=== PATIENT | female | born 1995 | race Caucasian/White ===

== ENCOUNTER 2020-02-17 22:54 | Inpatient (IN) ==
[2020-02-17] MEDS ORDERED: OXYTOCIN 30 UNITS/500 ML BAG IV PRN (23:43)
[2020-02-17] MEDS ORDERED: PENICILLIN G POTASSIUM 3 MU in DEXTROSE 5% 100 ML IV PRN (23:43)
[2020-02-17] MEDS ORDERED: PENICILLIN G POTASSIUM 6 MU in DEXTROSE 5% 250 ML IV STA (23:43)
[2020-02-17] MEDS: LACTATED RINGER'S 1,000 ML IV PRN (23:55)
--- NOTE | 2020-02-17 23:55 | History & Physical Report ---
Date of Service February 17, 2020 Assessment & Plan (1) GBS (group B Streptococcus carrier), +RV culture, currently : 24yo at 38.2 weeks GA. Labor 1. Fetus: Cat 1 2. Labor: Early. Will admit. Epidural PRN. Will augment as needed 3. GBS Positive: PCN 4. Vital WNL (2) Supervision of normal intrauterine in multigravida: (3) Normal labor: History of Present Illness Primary Care Provider: NO PCP 24yo at 38.2 weeks GA. Presents with contractions increasing ing frequency and intensity. Denies LOF, VB. Good FM. complicated by GBS positive. OB Labs: Blood Type A Positive 07/28/19 Antibody Screen NEGATIVE 07/28/19 Hemoglobin 11.7 g/dL (12.0-16.0) L 07/28/19 Hematocrit 36.0 % (37-47) L 07/28/19 Mean Corpuscular Volume 94.5 fL (80-100) 07/28/19 Platelet Count 295 K/uL (130-400) 07/28/19 Rubella IgG Antibody Immune (Immune) 07/28/19 Rapid Plasma Reagin Nonreactive (Nonreactive) 07/28/19 Hepatitis B Surface Antigen Neg (Neg) 07/28/19 HIV (1&2) Ab and P24 Ag, 4th Gener Neg (Neg) 07/28/19 OB Optional Labs: Chlamydia trachomatis RNA NOT DETECTED (NOT DETECTED) 07/28/19 Neisseria gonorrhoeae RNA NOT DETECTED (NOT DETECTED) 07/28/19 Thyroid Stimulating Hormone (TSH) 1.590 uIu/ml (0.300-4.500) 07/28/19 Allergies Allergy/AdvReac Type Severity Reaction Status Date / Time acetaminophen Allergy eye Verified 02/15/20 10:51 swelling NSAIDS (Non-Steroidal Allergy throat and Verified 02/15/20 10:51 Anti-Inflamma eye swelling Home Medications Medication Instructions Recorded Confirmed Type ferrous sulfate 325 mg PO DAILY 07/18/19 02/17/20 History prenat.vits,margo,[id number]-[id number] 1 tab PO DAILY 07/18/19 02/17/20 History Patient History Medical History (Updated 02/17/20 @ 23:52 by Long Browning MD) Abnormal thyroid function test Ovarian cyst Varicella vaccination Surgical History S/P wisdom tooth extraction Family History Mother Thyroid disease Social History (Updated 07/18/19 @ 10:58 by Radha Haskins) Smoking Status: Never smoker Hx Alcohol Use: No Hx Substance Use: No Preferred Language: Venezuelan Communication Ability: Effective Beliefs That Will Affect Care: None marital status: marital status details: Anup Anderson (25) [phone] Current Living Situation: Spouse and Family Current Living Situation Comment: lives with spouse, son, dog current occupational status: employed current occupation: self-employed Wedding/crusher operator Feels Safe at Home: Yes Safety Concerns: Feels Safe At This Time Physical Exam Constitutional: WD/WN, vitals as above Respiratory: normal respiratory effort; no respiratory distress, no labored breathing and no retractions Cardiovascular: Rate/Rhythm: regular rate; not bradycardic and not tachycardic Gastrointestinal (Abdomen): Percussion/Palpation: abdomen soft; abdomen nontender, no guarding and abdomen not rigid Genitourinary: OB Exam Abdomen: + vertex Manual OB Exam: + cervical dilation 4 cm, + cervical effacement 90% and + station -1 OB Exam Monitor Tracing: + external FHT monitor used, + external uterine monitor used, + category I and + normal FHT variability; no early decelerations present, no late decelerations present and no variable decelerations Results & Data ([facility]) Vital Signs (Past 12 Hours) Vital Signs Temp Pulse Resp BP 02/17/20 23:14 36.8 C 18 02/17/20 23:09 36.8 C 85 18 128/65 Coding Level of Care Code None Diagnoses GBS (group B Streptococcus carrier), +RV culture, currently O99.820 Supervision of normal intrauterine in multigravida Z34.80 Normal labor O80; Z37.9
[2020-02-18 00:13] LABS: Hematocrit (blood only) 33.3 % (37-47); Hemoglobin 10.9 g/dL (12.0-16.0); Mean Corpuscular Hemoglobin 30.4 pg (25-34); Mean Corpuscular Hgb Conc 32.7 g/dL (32-36); Mean Corpuscular Volume 92.8 fL (80-100); Mean Platelet Volume 10.1 fL (7.4-10.4); Platelet Count 267 K/uL (130-400); RDW Standard Deviation 44.1 fL (36.4-46.3); Red Blood Count 3.59 M/uL (4.2-5.4); White Blood Count 16.29 K/uL (4.8-10.8)
[2020-02-18] MEDS ORDERED: BUPIVACAINE 0.25% 30 ML VIAL ONE (02:10)
[2020-02-18] MEDS ORDERED: ePHEDrine sulfate 50 MG/ML AMP ONE (02:10)
[2020-02-18] MEDS ORDERED: SODIUM CHLORIDE 0.9% INJ 10 ML VIAL ONE (02:10)
[2020-02-18] MEDS ORDERED: fentaNYL citrate 100 MCG/2 ML VIAL ONE (02:10)
[2020-02-18] MEDS ORDERED: fentaNYL 2MCG/ML ROPIVACAINE 1.25MG/ML 100 ML BAG EPI ONE (02:11)
[2020-02-18] MEDS ORDERED: NALOXONE HCL 0.4 MG/1 ML VIAL/CARP IV PRN (02:17)
[2020-02-18] MEDS ORDERED: ePHEDrine sulfate 50 MG/ML AMP IV PRN (02:17)
[2020-02-18] MEDS ORDERED: NALOXONE HCL 1 MG in SODIUM CHLORIDE 0.9% 1000ML 1,000 ML IV PRN (02:17)
[2020-02-18] MEDS ORDERED: diphenhydrAMINE 50 MG/ML VIAL IV PRN (02:17)
[2020-02-18] MEDS ORDERED: ONDANSETRON INJ 2 MG/ML 2 ML VIAL IV PRN (02:17)
[2020-02-18] MEDS ORDERED: fentaNYL 2MCG/ML ROPIVACAINE 1.25MG/ML 100 ML BAG EPI PRN (02:17)
--- NOTE | 2020-02-18 02:21 | Anesthesiology Consultation ---
Date of Service February 18, 2020 Assessment & Plan (1) Encounter for pre-operative examination: Chart Review Chart Review: Patient NOT seen in Pre Admission Testing, Acceptable Risk for Labor Epidural and Patient seen in Pre Admission Testing Consults Requested cardiac History Height/Weight Height: 5 ft 3 in Weight: 76.657 kg Allergies Allergy/AdvReac Type Severity Reaction Status Date / Time acetaminophen Allergy eye Verified 02/15/20 10:51 swelling NSAIDS (Non-Steroidal Allergy throat and Verified 02/15/20 10:51 Anti-Inflamma eye swelling Medications Home Medications Medication Instructions Recorded Confirmed Last Taken ferrous sulfate 325 mg PO DAILY 07/18/19 02/17/20 02/15/20 prenat.vits,margo,[id number] 1 tab PO DAILY 07/18/19 02/17/20 02/17/20 Active Medications Generic Name Dose Route Start Last Admin Trade Name Freq PRN Reason Stop Dose Admin Lactated Ringer's 1,000 mls @ 125 mls/hr 02/17/20 23:43 02/18/20 02:10 Lr IV 02/19/20 23:42 999 mls/hr .Q8H PRN Infusion L&D Protocol Protocol Past Medical History Medical History Abnormal thyroid function test Ovarian cyst Varicella vaccination Exercise / Class Metabolic Activity II 4-5 Yardwork/Stairs/Walk up hill Past Family History Family History Mother Thyroid disease Past Surgical History Surgical History S/P wisdom tooth extraction Past Anesthesia History No Hx of Anesthesia Complications and No Family Hx of Anesthesia Complications History of PONV No Hx of PONV and No Hx of Motion Sickness Social History Smoking Status: Never smoker Do You Dip or Chew Tobacco: No Hx Alcohol Use: No Hx Substance Use: No substance use type: does not use Physical Exam Vital Signs Last Vital Signs Temp 36.8 C 02/17/20 23:14 Pulse 85 02/17/20 23:09 Resp 18 02/17/20 23:14 BP 128/65 02/17/20 23:09 Testing Laboratory Results 02/18/20 00:05
[2020-02-18] MEDS: LACTATED RINGER'S 1,000 ML IV PRN (06:10)
[2020-02-18] MEDS ORDERED: HYDROCORTISONE ACETATE 25 MG SUPP PR PRN (08:15)
[2020-02-18] MEDS ORDERED: SUPERCREAM 0.870% 15 GM JAR EXT PRN (08:15)
[2020-02-18] MEDS ORDERED: OXYTOCIN 30 UNITS/500 ML BAG IV PRN (08:15)
[2020-02-18] MEDS ORDERED: bisacodyL 10 MG SUPP PR PRN (08:15)
[2020-02-18] MEDS ORDERED: BENZOCAINE 20% AER SPR 82.5 GM CAN EXT PRN (08:15)
[2020-02-18] MEDS ORDERED: traMADol HCL 50 MG TABLET PO PRN (08:15)
[2020-02-18] MEDS ORDERED: DIPHTHERIA/TETANUS/PERTUSSIS 0.5 ML SYR/VIAL IM ONE (08:15)
--- NOTE | 2020-02-18 09:25 | Anesthesia Procedure Note ---
Date of Service February 18, 2020 Anesthesia Post Epidural Note Vital Signs Vital Signs: Temp Pulse Resp BP Pulse Ox 37.2 C 83 20 101/58 L 100 02/18/20 05:12 02/18/20 09:21 02/18/20 08:35 02/18/20 09:21 02/18/20 07:15 Pain Intensity Bilateral Abdomen: Pain Intensity: 8 Notes Mental Status: alert / awake / arousable and participated in evaluation Nausea / Vomiting: adequately controlled Pain: adequately controlled Airway Patency, RR, SpO2: stable & adequate BP & HR: stable & adequate Hydration State: stable & adequate Neuraxial Anesthesia: was administered and sensory block is resolving Anesthetic Complications: no major complications apparent Epidural: Removed without complications and With tip intact
--- NOTE | 2020-02-18 10:57 | Delivery Summary ---
DATE OF OPERATION: 02/18/2020 PROCEDURE: Normal spontaneous vaginal delivery with first-degree perineal laceration repair. ESTIMATED BLOOD LOSS: 200 mL. DRAINS: Straight cath for 500 mL at completion of the case. COMPLICATIONS: None. FINDINGS: A viable with weight pending and Apgars of 8 and 9 at 1 and 5 minutes respectively. INDICATIONS: Suki is a 24-year-old who presents at 38 weeks 3 days gestational age, presented in labor. The patient was initially found to be 4 cm dilated, 90% effaced, -2 station. The patient progressed without augmentation to complete, complete, +2 station, at which time she felt the urge to push. The patient underwent spontaneous rupture of membranes for clear fluid during her labor process and received an epidural for anesthesia. The patient pushed for approximately 2 contractions to achieve delivery. DESCRIPTION OF PROCEDURE: The patient progressed to 10 cm dilated, 100% effaced, +2 station, pushed over intact perineum with epidural anesthesia and delivered a viable with weight and Apgars as noted above. Head of delivered in STEVE position, rest to left transverse. No nuchal cord was noted. Body and shoulders quickly followed. was noted to be vigorous upon delivery and a 1-minute delayed cord clamping was initiated. Cord was then double clamped and cut. remained on maternal abdomen. Cord blood was obtained. Attention was then turned to delivery of the placenta, which was delivered intact, 3-vessel cord, gentle cord traction. On inspection of perineum, vagina, and cervix, there was noted to be a very small first-degree perineal laceration, which was repaired with 3-0 Vicryl in an interrupted stitch. Needle, sponge, and instrument counts were correct at the completion of the case with mother and stable in the immediate post-delivery period. I attest to the content of the Intraoperative Record and any orders documented therein. Any exception s are noted below.
[2020-02-18] MEDS ORDERED: oxyCODONE HCL IR 5 MG TAB (IMMEDIATE RELEASE) PO PRN ×3 (11:12→19:10)
[2020-02-18] MEDS ORDERED: Nursing to Pharmacy Communication SCH (19:15)
[2020-02-18] MEDS: oxyCODONE HCL IR 5 MG TAB (IMMEDIATE RELEASE) PO PRN ×2 (19:26→23:35)
[2020-02-18] MEDS: DOCUSATE SODIUM 100 MG CAP PO SCH (20:12)
[2020-02-19] MEDS: oxyCODONE HCL IR 5 MG TAB (IMMEDIATE RELEASE) PO PRN ×3 (03:09→11:56)
[2020-02-19 07:07] LABS: Hematocrit (blood only) 34.5 % (37-47); Hemoglobin 11.2 g/dL (12.0-16.0)
[2020-02-19] MEDS: DOCUSATE SODIUM 100 MG CAP PO SCH (07:23)
[2020-02-19] MEDS ORDERED: FERROUS SULFATE 325 MG TAB PO SCH (08:00)
[2020-02-19] MEDS ORDERED: PRENATAL VITAMIN 1 TAB PO SCH (08:00)
--- NOTE | 2020-02-19 08:02 | Obstetrical Progress Note ---
Date of Service February 19, 2020 Assessment & Plan (1) Encounter for care and examination after delivery: satisfactory progress continue current care plan Subjective Ambulation: ambulating normally Voiding: no voiding problems Passing Gas:: Yes Diet Tolerance:: regular diet Lochia:: Small Feeding Type:: breast feeding oxycodone helping with cramps. cannot take ibuprofen or tylenol. Physical Exam Constitutional WD/WN, vitals as above Psychiatric A+Ox3, euthymic affect Genitourinary OB Exam Abdomen: + fundal height Fundus: + firm and + relation to umbilicus (1 below U) Results & Data ([facility]) Vital Signs (Past 12 Hours) Vital Signs Temp Pulse Resp BP 02/19/20 07:47 98.1 F 80 20 111/70 02/19/20 03:15 98.2 F 81 18 113/75 02/18/20 23:40 98.1 F 80 16 117/71
[2020-02-19] MEDS ORDERED: bisacodyL 5 MG TABEC PO SCH (20:00)
== END 2020-02-19 12:30 | disposition home or self-care (01) | DRG 807 ==
LOC: OPB 22:54 → 4S1 22:55 → 4S2 02-18 14:36

== ENCOUNTER 2022-11-23 10:49 | Inpatient (IN) ==
[2022-11-23] MEDS ORDERED: LIDOCAINE 1% LOCAL 20 ML VIAL INFIL PRN (14:49)
[2022-11-23] MEDS ORDERED: OXYTOCIN 30 UNITS/500 ML BAG IV PRN ×3 (14:49→18:24)
--- NOTE | 2022-11-23 14:53 | History & Physical Report ---
Date of Service November 23, 2022 Assessment & Plan (1) Encounter for supervision of normal in multigravida, antepartum: Plan: 27 yo at 39 4/7 wga presents in labor VSS Fetus cat 1 Labor - augment prn GBS neg epidural prn History of Present Illness Chief Complaint: Contractions Primary Care Provider: Jessenia Hinkle MD 27 yo at 39 4/7 wga presented w/ ctx increasing in frequency and intensity. +FM; denies LOF, VB. 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 current regular cycles denies hx stis Allergies Allergy/AdvReac Type Severity Reaction Status Date / Time acetaminophen Allergy eye Verified 11/23/22 11:10 swelling NSAIDS (Non-Steroidal Allergy throat and Verified 11/23/22 11:10 Anti-Inflamma eye swelling Home Medications Medication Instructions Recorded Confirmed Type prenat.vits,margo,[id number]-[id number] 1 tab PO DAILY 07/18/19 11/23/22 History ferrous sulfate [Iron (ferrous 1 tab PO DAILY 11/01/21 11/23/22 History sulfate)] pyridoxine (vitamin B6) [Vitamin PO 04/21/22 11/21/22 History B-6] Patient History Medical History (Updated 11/23/22 @ 11:09 by Lynette Darby RN) Abnormal thyroid function test Anemia GBS (group B Streptococcus carrier), +RV culture, currently Normal labor Ovarian cyst Supervision of normal intrauterine in multigravida Varicella vaccination Surgical History S/P wisdom tooth extraction Family History Mother Thyroid disease Grandfather (Maternal) Myocardial infarction Denies family history of Ovarian cancer Prostate cancer Breast cancer Colorectal cancer Social History (Updated 04/21/22 @ 17:06 by Katia Doyle) Smoking Status: Never smoker Do You Dip or Chew Tobacco: No; Hx Alcohol Use: No Hx Substance Use: No Preferred Language: Belarusian Communication Ability: Effective Aircraft Tool Maker Required: No Beliefs That Will Affect Care: None marital status: marital status details: Anup Anderson (27) [phone] Current Living Situation: Spouse Current Living Situation Comment: Patient lives with her and two sons. current occupational status: employed current occupation: self-employed Wedding/personnel worker Feels Safe at Home: Yes Safety Concerns: Feels Safe At This Time Assistive Devices: None Physical Exam Genitourinary: OB Exam Abdomen: + estimated weight (7-8) Manual OB Exam: + cervical dilation 5 cm, + cervical effacement 80% and + station -2 OB Exam Monitor Tracing: + external FHT monitor used, + external uterine monitor used and + category I Results & Data Vital Signs (Past 12 Hours) Vital Signs Temp Pulse Resp BP 11/23/22 11:15 98.1 F 100 H 20 108/66 11/23/22 11:03 18 11/23/22 11:03 98.1 F 18 11/23/22 11:04 100 H 108/ Laboratory Results OB Labs: Blood Type A Positive 04/22/22 Antibody Screen NEGATIVE 04/22/22 Hemoglobin 10.8 g/dl (12.0-16.0) L 09/03/22 Hematocrit 32.5 % (37.0-47.0) L 09/03/22 Mean Corpuscular Volume 92.0 fL (80.0-100.0) 04/22/22 Platelet Count 292 K/uL (130-400) 04/22/22 Rubella IgG Antibody Immune (Immune) 04/22/22 Rapid Plasma Reagin Nonreactive (Nonreactive) 04/22/22 Hepatitis B Surface Antigen Neg (Neg) 07/28/19 Hepatitis B Surface Antigen. NON-REACTIVE (NON-REACTIVE) 04/22/22 Hepatitis C Antibody (EIA) NON-REACTIVE (NON-REACTIVE) 04/22/22 HIV (1&2) Ab and P24 Ag, 4th Gener Neg (Neg) 07/28/19 HIV (1&2) Ag and Ab Confirmation NON-REACTIVE (NON-REACTIVE) 04/22/22 Glucose 1 Hour 50 gm Load 134 mg/dl (70-130) H 09/03/22 OB Optional Labs: Chlamydia trachomatis RNA Not Detected (NotDetected) 04/22/22 Neisseria gonorrhoeae RNA Not Detected (NotDetected) 04/22/22 Thyroid Stimulating Hormone (TSH) 1.590 uIu/ml (0.300-4.500) 07/28/19 Labs Reviewed: Positive CF carrier/spouse neg, 2018 SMA Negative 07/28/19 Declines cfdna--mln declines afp--ak gbs neg--[facility] Diagnostic Findings ant plac Coding Level of Care Code None Diagnoses Encounter for supervision of normal in multigravida, antepartum Z34.80
[2022-11-23] MEDS: LACTATED RINGER'S 1,000 ML IV PRN ×2 (15:00→16:00)
[2022-11-23] MEDS ORDERED: SODIUM CHLORIDE 0.9% PF INJ 10 ML VIAL ONE (15:11)
[2022-11-23] MEDS ORDERED: LIDOCAINE 2%/EPINEPHRINE 1:200,000 20 ML PF ONE (15:11)
[2022-11-23] MEDS ORDERED: ePHEDrine sulfate 50 MG/ML AMP ONE (15:11)
[2022-11-23] MEDS ORDERED: fentaNYL citrate PF 100 MCG/2 ML VIAL ONE (15:11)
[2022-11-23] MEDS ORDERED: BUPIVACAINE 0.25% PF 30 ML VIAL ONE (15:11)
[2022-11-23] MEDS ORDERED: fentaNYL 2MCG/ML ROPIVACAINE 1.25MG/ML 100 ML BAG EPI ONE (15:12)
--- NOTE | 2022-11-23 15:19 | Anesthesiology Consultation ---
Date of Service November 23, 2022 Assessment & Plan Chart Review Chart Review: Acceptable Risk for Labor Epidural Consults Requested none History Height/Weight Height: 5 ft 3 in Weight: 78.018 kg Allergies Allergy/AdvReac Type Severity Reaction Status Date / Time acetaminophen Allergy eye Verified 11/23/22 11:10 swelling NSAIDS (Non-Steroidal Allergy throat and Verified 11/23/22 11:10 Anti-Inflamma eye swelling Medications Home Medications Medication Instructions Recorded Confirmed Last Taken prenat.vits,margo,[id number] 1 tab PO DAILY 07/18/19 11/23/22 11/22/22 08:00 ferrous sulfate [Iron (ferrous 1 tab PO DAILY 11/01/21 11/23/22 11/23/22 08:00 sulfate)] pyridoxine (vitamin B6) [Vitamin PO 04/21/22 11/21/22 Unknown B-6] Active Medications Generic Name Dose Route Start Last Admin Trade Name Freq PRN Reason Stop Dose Admin Lactated Ringer's 1,000 mls @ 125 mls/hr 11/23/22 14:49 11/23/22 15:00 Lr IV 11/25/22 14:48 999 mls/hr .Q8H PRN Administration L&D Protocol Protocol Past Medical History Medical History (Updated 11/23/22 @ 11:09 by Lynette Darby RN) Abnormal thyroid function test Anemia GBS (group B Streptococcus carrier), +RV culture, currently Normal labor Ovarian cyst Supervision of normal intrauterine in multigravida Varicella vaccination Past Family History Family History Mother Thyroid disease Grandfather (Maternal) Myocardial infarction Denies family history of Ovarian cancer Prostate cancer Breast cancer Colorectal cancer Past Surgical History Surgical History S/P wisdom tooth extraction Social History Smoking Status: Never smoker Do You Dip or Chew Tobacco: No Hx Alcohol Use: No Hx Substance Use: No substance use type: does not use Physical Exam Vital Signs Last Vital Signs Temp 36.7 C 11/23/22 11:15 Pulse 105 H 11/23/22 15:13 Resp 20 11/23/22 11:15 BP 108/66 11/23/22 11:15 Pulse Ox 97 11/23/22 15:13
[2022-11-23] MEDS ORDERED: fentaNYL citrate PF 100 MCG/2 ML VIAL EPI STA (15:20)
[2022-11-23] MEDS ORDERED: fentaNYL citrate PF 100 MCG/2 ML VIAL EPI PRN (15:20)
[2022-11-23] MEDS ORDERED: ROPIVACAINE 0.5% PF 5 MG/ML 20 ML VIAL EPI PRN (15:20)
[2022-11-23] MEDS ORDERED: BUPIVACAINE 0.25% PF 30 ML VIAL EPI STA (15:20)
[2022-11-23] MEDS ORDERED: LIDOCAINE 2%/EPINEPHRINE 1:200,000 20 ML PF EPI STA (15:20)
[2022-11-23] MEDS ORDERED: SODIUM CHLORIDE 0.9% PF INJ 10 ML VIAL EPI PRN (15:20)
[2022-11-23] MEDS ORDERED: ePHEDrine sulfate 50 MG/ML AMP IV PRN (15:20)
[2022-11-23] MEDS ORDERED: LIDOCAINE 2% MPF LOCAL 5 ML VIAL EPI PRN (15:20)
[2022-11-23] MEDS ORDERED: diphenhydrAMINE 50 MG/ML VIAL IV PRN (15:20)
[2022-11-23] MEDS ORDERED: SODIUM CHLORIDE 0.9% PF INJ 10 ML VIAL EPI STA (15:20)
[2022-11-23] MEDS ORDERED: NALBUPHINE HCL INJ 10 MG/ML AMP IV PRN (15:20)
[2022-11-23] MEDS ORDERED: NALOXONE HCL 0.4 MG/1 ML VIAL/CARP IV PRN (15:20)
[2022-11-23] MEDS ORDERED: fentaNYL 2MCG/ML ROPIVACAINE 1.25MG/ML 100 ML BAG EPI PRN (15:20)
[2022-11-23] MEDS ORDERED: NALOXONE HCL 1 MG in SODIUM CHLORIDE 0.9% 1,000 ML IV PRN (15:20)
[2022-11-23] MEDS ORDERED: BUPIVACAINE 0.25% PF 30 ML VIAL EPI PRN (15:20)
[2022-11-23 15:52] LABS: Hematocrit (blood only) 34.4 % (37.0-47.0); Hemoglobin 11.4 g/dl (12.0-16.0); Mean Corpuscular Hemoglobin 29.9 pg (25.0-34.0); Mean Corpuscular Hgb Conc 33.1 g/dL (32.0-36.0); Mean Corpuscular Volume 90.3 fL (80.0-100.0); Mean Platelet Volume 11.1 fL (9.4-12.4); Platelet Count 240 K/uL (130-400); RDW Coefficient of Variation 13.3 % (11.5-14.5); RDW Standard Deviation 43.7 fL (36.4-46.3); Red Blood Count 3.81 M/uL (4.20-5.40); White Blood Count 12.35 K/ul (4.8-10.8)
--- NOTE | 2022-11-23 17:27 | Labor Progress Brief Note ---
Date of Service November 23, 2022 Subjective Comfortable w/ epidural Assessment & Plan (1) Encounter for supervision of normal in multigravida, antepartum: Plan: 27 yo at 39 4/7 wga presents in labor VSS Fetus cat 1 Labor - s/p arom with light mec. Station progressed, augment prn GBS neg epidural in place Admission and Anticipated Discharge Date Admission Date: November 23, 2022 Physical Exam Genitourinary: Manual OB Exam: + cervical dilation 5 cm, + cervical effacement 80%, + station -1 and + amniotic fluid (arom light mec) OB Exam Monitor Tracing: + external FHT monitor used, + external uterine monitor used and + category I (140/mod/+accel/-decel) Results & Data Vital Signs (Past 12 Hours) Vital Signs Temp Pulse Resp BP Pulse Ox 11/23/22 11:15 98.1 F 100 H 20 108/66 11/23/22 17:20 95 11/23/22 17:20 103 H 11/23/22 17:15 97 11/23/22 17:15 119 H 11/23/22 17:15 110 H 11/23/22 17:15 109/54 L 11/23/22 17:10 95 11/23/22 17:10 110 H 11/23/22 17:05 96 11/23/22 17:05 114 H 11/23/22 17:00 95 11/23/22 17:00 103 H 11/23/22 17:00 93 H 11/23/22 17:00 106/58 L 11/23/22 16:57 94 11/23/22 16:57 98 H 11/23/22 16:55 97 11/23/22 16:55 109 H 11/23/22 16:51 94 11/23/22 16:51 113 H 11/23/22 16:50 97 11/23/22 16:50 106 H 11/23/22 16:45 96 11/23/22 16:45 101 H 11/23/22 16:44 102 H 11/23/22 16:44 106/51 L 11/23/22 16:40 96 11/23/22 16:40 100 H 11/23/22 16:35 96 11/23/22 16:35 95 H 11/23/22 16:30 96 11/23/22 16:30 104 H 11/23/22 16:30 92/54 L 11/23/22 16:25 97 11/23/22 16:25 99 H 11/23/22 16:20 97 11/23/22 16:20 104 H 11/23/22 16:15 98 11/23/22 16:15 96 H 11/23/22 16:16 96 H 11/23/22 16:16 101/53 L 11/23/22 16:10 98 11/23/22 16:10 96 H 11/23/22 16:05 98 11/23/22 16:05 104 H 11/23/22 16:00 98 11/23/22 16:00 98 H 11/23/22 16:00 106/49 L 11/23/22 15:55 96 11/23/22 15:55 98 H 11/23/22 15:50 97 11/23/22 15:50 92 H 11/23/22 15:45 96 11/23/22 15:45 100 H 11/23/22 15:43 93 H 11/23/22 15:43 107/56 L 11/23/22 15:40 96 11/23/22 15:40 95 H 11/23/22 15:37 94 11/23/22 15:37 95 H 11/23/22 15:37 105/72 11/23/22 15:35 98 11/23/22 15:35 99 H 11/23/22 15:32 98 H 11/23/22 15:32 119/64 11/23/22 15:25 20 11/23/22 15:25 98.4 F 20 11/23/22 15:29 97 11/23/22 15:29 112 H 11/23/22 15:24 98 11/23/22 15:24 100 H 11/23/22 15:25 101 H 11/23/22 15:25 120/80 11/23/22 15:19 93 11/23/22 15:19 102 H 11/23/22 15:18 97 11/23/22 15:18 105 H 11/23/22 15:13 97 11/23/22 15:13 105 H 11/23/22 11:03 18 11/23/22 11:03 98.1 F 18 10/15/23 11:04 100 H 108/66 Coding Level of Care Code None Diagnoses Encounter for supervision of normal in multigravida, antepartum Z34.80
--- NOTE | 2022-11-23 18:23 | Delivery Summary ---
Vaginal Delivery Summary Date of Service November 23, 2022 Vaginal Delivery Summary [facility] PREOPERATIVE DIAGNOSIS: 1. Single intrauterine at 39 4/7 wga 2. Labor POSTOPERATIVE DIAGNOSIS: 1. Single intrauterine at 39 4/7 wga 2. Labor 3. Delivered PROCEDURE: 1. Normal spontaneous vaginal delivery. SURGEON: Yi Naidu MD ANESTHESIA: Epidural. ESTIMATED BLOOD LOSS: 300 mL FLUIDS: Continuous LR. URINE OUTPUT: None. COMPLICATIONS: None. CONDITION: Stable. INDICATIONS: 27 yo at 39 4/7 wga presented for evaluation due to contractions increasing in frequency and intensity. On arrival was 4/50/-2 and progressed to 5/80/-2 and was admitted. She received an epidural for pain control and underwent AROM. She then rapidly progressed to complete and desired to push FINDINGS: A viable female , weight pending with Apgars of 8 and 9 at 1 and 5 minutes respectively. SPECIMEN: Cord blood OPERATIVE REPORT: The patient progressed to 10 cm, 100% effaced and +2 station, pushed over intact perineum with anesthesia to deliver a viable female , weight and Apgars as above. Head of delivered in OA position. No nuchal cord was present. Body and shoulders were delivered without difficulty. was delivered to maternal abdomen and nursing staff. Delayed cord clamping was performed for 60 seconds. Cord was clamped and cut. Cord blood was obtained. Placenta delivered spontaneously intact with 3-vessel cord. IV oxytocin and f undal massage were given for excellent hemostasis. Vagina, cervix, perineum, and placenta were inspected. No lacerations were noted. Sponge and needle counts correct x2. No sponges were left behind. Mother and stable in immediate period. [facility] Vaginal Delivery Charge Vaginal Delivery Codes: 00174 global code for the antepartum, delivery, and post- Delivery Type Details: [facility]
[2022-11-23] MEDS ORDERED: bisacodyL 10 MG SUPP PR PRN (18:24)
[2022-11-23] MEDS ORDERED: HYDROCORTISONE ACETATE 25 MG SUPP PR PRN (18:24)
[2022-11-23] MEDS ORDERED: BENZOCAINE 20% SPRY 85 APPLN/85 GM CAN EXT PRN (18:24)
[2022-11-23] MEDS ORDERED: DIPHTHERIA/TETANUS/PERTUSSIS Vaccine (Tdap, Age 7+yrs) 0.5mL SYR/VL IM ONE (18:24)
--- NOTE | 2022-11-23 19:00 | Anesthesia Procedure Note ---
Date of Service November 23, 2022 Anesthesia Post Epidural Note Vital Signs Vital Signs: Temp Pulse Resp BP Pulse Ox 37.1 C 76 16 111/57 L 92 11/23/22 17:24 11/23/22 18:46 11/23/22 17:24 11/23/22 18:46 11/23/22 18:17 Notes Mental Status: alert / awake / arousable Nausea / Vomiting: adequately controlled Pain: adequately controlled Airway Patency, RR, SpO2: stable & adequate BP & HR: stable & adequate Hydration State: stable & adequate Neuraxial Anesthesia: was administered and sensory block is resolving Anesthetic Complications: no major complications apparent and Pt Satisfied with anesthetic care Epidural: Removed without complications and With tip intact
--- NOTE | 2022-11-23 20:50 | Obstetrical Progress Note ---
Date of Service <Karan Alexandra MD - Last Filed: 11/24/22 07:21> November 23, 2022 Assessment & Plan <Karan Alexandra MD - Last Filed: 11/24/22 07:21> (1) (spontaneous vaginal delivery): Plan 27 yo , day 2, status post of girl, on 11/23/22, no LACs - Pt doing well clinically. Feels well today. Eating well, voiding well, ambulating well. Pain well controlled with PRN pain meds. - Routine care -- OOB, ambulation, diet progression as tolerated Vital Signs reviewed and WNL (Tmax at 37.1) except as noted: BP 92/54 pre- delivery and P 96 post-delivery Hemoglobin Reviewed. 11.4 (12/24/22). Blood Type: A+, GBS-, Rubella Immune. Encourage ambulation, monitor and control pain with Motrin PRN, resume regular diet, monitor lochia. Breast feeding encouraged. After discharge will have 6 week follow-up with Dr. Naidu. Pt counselled on discharge instructions. <Yi Naidu MD - Last Filed: 11/24/22 07:22> (1) (spontaneous vaginal delivery): Subjective <Karan Alexandra MD - Last Filed: 11/24/22 07:21> Ambulation: ambulating normally Voiding: no voiding problems Passing Gas:: Yes Diet Tolerance:: regular diet Lochia:: Small Feeding Type:: breast feeding Current Pain Level(1-10): 5 (mostly cramping while nursing) 27 yo F, , day 1 s/p Respiratory: + cough (lingering from cold from week ago); no dyspnea Cardiovascular: no chest pain or no palpitations Breast: + breast pain (little tenderness w/ nursing) Gastrointestinal: no nausea, no vomiting, no constipation (doesn't feel that way but no BM yet) or no diarrhea/loose stools Genitourinary (female): no dysuria Musculoskeletal: + myalgia (possible Charley horse in left calf) Physical Exam <Karan Alexandra MD - Last Filed: 11/24/22 07:21> Respiratory normal respiratory effort, lungs clear to auscultation Cardiovascular RRR, no murmur, no edema Gastrointestinal (Abdomen) normal bowel sounds, soft, nontender, no hepatosplenomegaly Musculoskeletal Extremities: extremities normal to inspection (no calf pain or tenderness) Results & Data <Karan Alexandra MD - Last Filed: 11/24/22 07:21> Vital Signs (Past 12 Hours) Vital Signs Temp Pulse Resp BP Pulse Ox 11/23/22 20:15 18 11/23/22 19:45 18 11/23/22 11:15 36.7 C 100 H 20 108/66 11/23/22 20:15 96 H 11/23/22 20:15 111/63 11/23/22 20:01 91 H 11/23/22 20:01 110/63 11/23/22 19:46 81 11/23/22 19:46 124/55 L 11/23/22 19:30 91 H 11/23/22 19:30 117/63 11/23/22 19:15 80 11/23/22 19:15 109/57 L 11/23/22 19:01 78 11/23/22 19:01 112/61 11/23/22 18:46 76 11/23/22 18:46 111/57 L 11/23/22 18:31 90 11/23/22 18:31 131/67 11/23/22 18:17 92 11/23/22 18:17 94 H 11/23/22 18:16 93 H 11/23/22 18:16 107/60 11/23/22 18:14 94 H 11/23/22 18:14 116/57 L 11/23/22 18:12 91 11/23/22 18:12 86 11/23/22 18:07 94 11/23/22 18:07 100 H 11/23/22 18:02 100 11/23/22 18:02 110 H 11/23/22 18:00 102 H 11/23/22 18:00 97/52 L 11/23/22 17:57 98 11/23/22 17:57 99 H 11/23/22 17:52 97 11/23/22 17:52 94 H 11/23/22 17:47 96 11/23/22 17:47 100 H 11/23/22 17:43 96 H 11/23/22 17:43 98/56 L 11/23/22 17:42 95 11/23/22 17:42 95 H 11/23/22 17:31 95 H 11/23/22 17:31 107/58 L 11/23/22 17:24 16 11/23/22 17:24 37.1 C 16 11/23/22 17:20 95 11/23/22 17:20 103 H 11/23/22 17:15 97 11/23/22 17:15 119 H 11/23/22 17:15 110 H 11/23/22 17:15 109/54 L 11/23/22 17:10 95 11/23/22 17:10 110 H 11/23/22 17:05 96 11/23/22 17:05 114 H 11/23/22 17:00 95 11/23/22 17:00 103 H 11/23/22 17:00 93 H 11/23/22 17:00 106/58 L 11/23/22 16:57 94 11/23/22 16:57 98 H 11/23/22 16:55 97 11/23/22 16:55 109 H 11/23/22 16:51 94 11/23/22 16:51 113 H 11/23/22 16:50 97 11/23/22 16:50 106 H 11/23/22 16:45 96 11/23/22 16:45 101 H 11/23/22 16:44 102 H 11/23/22 16:44 106/51 L 11/23/22 16:40 96 11/23/22 16:40 100 H 11/23/22 16:35 96 11/23/22 16:35 95 H 11/23/22 16:30 96 11/23/22 16:30 104 H 11/23/22 16:30 92/54 L 11/23/22 16:25 97 11/23/22 16:25 99 H 11/23/22 16:20 97 11/23/22 16:20 104 H 11/23/22 16:15 98 11/23/22 16:15 96 H 11/23/22 16:16 96 H 11/23/22 16:16 101/53 L 11/23/22 16:10 98 11/23/22 16:10 96 H 11/23/22 16:05 98 11/23/22 16:05 104 H 11/23/22 16:00 98 11/23/22 16:00 98 H 11/23/22 16:00 106/49 L 11/23/22 15:55 96 11/23/22 15:55 98 H 11/23/22 15:50 97 11/23/22 15:50 92 H 11/23/22 15:45 96 11/23/22 15:45 100 H 11/23/22 15:43 93 H 11/23/22 15:43 107/56 L 11/23/22 15:40 96 11/23/22 15:40 95 H 11/23/22 15:37 94 11/23/22 15:37 95 H 11/23/22 15:37 105/72 11/23/22 15:35 98 11/23/22 15:35 99 H 11/23/22 15:32 98 H 11/23/22 15:32 119/64 11/23/22 15:25 20 11/23/22 15:25 36.9 C 20 11/23/22 15:29 97 11/23/22 15:29 112 H 11/23/22 15:24 98 11/23/22 15:24 100 H 11/23/22 15:25 101 H 11/23/22 15:25 120/80 11/23/22 15:19 93 11/23/22 15:19 102 H 11/23/22 15:18 97 11/23/22 15:18 105 H 11/23/22 15:13 97 11/23/22 15:13 105 H 11/23/22 11:03 18 11/23/22 11:03 36.7 C 18 11/23/22 11:04 100 H 108/66 <Yi Naidu MD - Last Filed: 11/24/22 07:22> Co-Signing Physician Notes Resident Physician Supervision Note: I interviewed and examined the patient. Discussed with Dr. Alexandra and agree with findings and plan as documented in the note. Any exceptions or clarifications are listed here: PP1 s/p , doing well. VSS, exam benign and wnl. Desires dc home, ok to do so Documented By: Yi Naidu MD
[2022-11-23] MEDS: oxyCODONE HCL IR 5 MG TAB (IMMEDIATE RELEASE) PO PRN (21:19)
[2022-11-23] MEDS: DOCUSATE SODIUM 100 MG CAP PO SCH (23:37)
[2022-11-24] MEDS: oxyCODONE HCL IR 5 MG TAB (IMMEDIATE RELEASE) PO PRN ×5 (01:35→21:53)
[2022-11-24] MEDS: FERROUS SULFATE 325 MG TAB PO SCH (07:56)
[2022-11-24] MEDS: DOCUSATE SODIUM 100 MG CAP PO SCH ×2 (07:56→20:41)
[2022-11-24] MEDS: PRENATAL VITAMIN 1 TAB PO SCH (07:56)
--- NOTE | 2022-11-24 14:04 | Obstetrical Progress Note ---
Date of Service November 24, 2022 Assessment & Plan (1) Superficial thrombophlebitis during puerperium, : Plan unclear that this is diagnosis for this patient. rec imaging to ensure no concern re: deep system,give risk factors of pp. rec supportive measures, warm compresses and asa. she notes she cannot take aspirin due to allergy but i don't see that on her allergy list. she is made aware of my rec for imaging and agrees. No evidence of dvt at present but pt aware of risks and sx and se. will see about results of imaging and go from there. order placed. Admission and Anticipated Discharge Date Admission Date: November 23, 2022 Subjective ctsp by nurse due to area on her right leg with red soreness. pt notes that after sitting in firm chair she felt that her upper right leg had a lump. it was tender and red but now less so. she thinks it was how she was sitting. she does have vv in that area. she has had those nothing new. no cp or sob. no leg pain. no calf pain. she is due to be dc'd home today. Physical Exam Constitutional: WD/WN, vitals as above Musculoskeletal: right upper lateral thigh with small area of redness at site of pt concern. ? pea sized lump, overlies area of vv. min tender at present. LE bilateral equal size. No calf tenderness, no cord, no erythema of calves. Results & Data Vital Signs (Past 12 Hours) Vital Signs Temp Pulse Resp BP Pulse Ox O2 Del Method 11/24/22 08:45 98.4 F 82 18 105/67 Room Air 11/24/22 03:13 98.2 F 82 18 110/68 96 Room Air PG Care Time/CCT Total # of Minutes Spent Total Time Spent with Patient: Total time spent is greater than 50% in coordination of care (as documented) at patient's floor/unit and/or counseling patient: Coding Level of Care Code None Diagnoses Superficial thrombophlebitis during puerperium, O87.0
--- NOTE | 2022-11-24 18:47 | Obstetrical Progress Note ---
Date of Service <Karan Alexandra MD - Last Filed: 11/25/22 07:24> November 24, 2022 Assessment & Plan <Karan Alexandra MD - Last Filed: 11/25/22 07:24> (1) (spontaneous vaginal delivery): Plan 27 yo , day 2, status post of girl, on 11/23/22, no LACs - Pt doing well clinically. Feels well today. Eating well, voiding well, ambulating well. Pain well controlled with PRN pain meds. - Routine care -- OOB, ambulation, diet progression as tolerated Vital Signs reviewed and WNL (Tmax at 37.1) except as noted: BP 92/54 pre- delivery and P 96 post-delivery Hemoglobin Reviewed. 11.4 (12/24/22). Blood Type: A+, GBS-, Rubella Immune. Encourage ambulation, monitor and control pain with Motrin PRN, resume regular diet, monitor lochia. Breast feeding encouraged. After discharge will have 6 week follow-up with Dr. Naidu. Pt counselled on discharge instructions and advised to see her PCP within a week following discharge. <Kika Steinberg MD, FACOG - Last Filed: 11/25/22 07:27> (1) (spontaneous vaginal delivery): Subjective <Karan Alexandra MD - Last Filed: 11/25/22 07:24> Ambulation: ambulating normally Voiding: no voiding problems Passing Gas:: Yes Diet Tolerance:: regular diet Lochia:: Small Feeding Type:: breast feeding Current Pain Level(1-10): 2 (sore, cramping abdominal pain; sore right thigh (w/ superficial clot)) Respiratory: + cough (lingering from cold from week ago); no dyspnea Cardiovascular: no chest pain or no palpitations Breast: + breast pain (little tenderness w/ nursing) Gastrointestinal: no nausea, no vomiting, no constipation (doesn't feel that way but still no BM yet) or no diarrhea/loose stools Genitourinary (female): no dysuria Musculoskeletal: + myalgia (possible Charley horse in left calf) Physical Exam <Karan Alexandra MD - Last Filed: 11/25/22 07:24> Respiratory normal respiratory effort, lungs clear to auscultation Cardiovascular RRR, no murmur, no edema Gastrointestinal (Abdomen) normal bowel sounds, soft, nontender, no hepatosplenomegaly Musculoskeletal Extremities: extremities normal to inspection (no calf pain or tenderness) superficial clot in varicose vein on upper right lateral thigh Results & Data <Karan Alexandra MD - Last Filed: 11/25/22 07:24> Vital Signs (Past 12 Hours) Vital Signs Temp Pulse Resp BP O2 Del Method 11/24/22 12:50 36.6 C 77 18 117/71 Room Air 11/24/22 08:45 36.9 C 82 18 105/67 Room Air <Kika Steinberg MD, FACOG - Last Filed: 11/25/22 07:27> Co-Signing Physician Notes Resident Physician Supervision Note: I interviewed and examined the patient. Discussed with Dr. Ewing and agree with findings and plan as documented in the note. Any exceptions or clarifications are listed here: Doing well. PLan d/c home. The area on her lateral thigh is slightly improved this am. Less red, less warm. Not increased in size. Plan d/c today. s/s of concern reviewed. To call pcp today for f/u by the end of the week. Documented By: Kika Steinberg MD, FACOG
[2022-11-24] MEDS ORDERED: bisacodyL 5 MG TABEC PO SCH (20:00)
--- NOTE | 2022-11-24 20:25 | Ultrasound Report ---
ULTRASOUND RIGHT LOWER EXTREMITY VENOUS CLINICAL HISTORY: Palpable thrombosed varicose vein. Right leg pain. COMPARISON STUDY: No priors. TECHNIQUE: Real-time, grayscale, and color Doppler sonography of the deep veins of the right lower ex tremity was performed from the inguinal crease to the calf. Compression and augmentation were utilize d. FINDINGS: There is no sonographic evidence of deep venous thrombosis identified in the right lower ex tremity. The common femoral, superficial femoral, and popliteal veins are patent and normally adelita sible. The greater saphenous vein and the profunda femoris vein at the junction with the common femor al vein are clear. The visualized calf veins are patent. There is occlusive thrombus seen within vari cose veins in the posterolateral thigh at the site of interest. This extends approximately 5 cm in le ngth. IMPRESSION: 1. There is no sonographic evidence of deep venous thrombosis identified in the right lower extremity . 2. Occlusive superficial venous thrombus within varicose veins in the posterolateral thigh at the sit e of interest. ACT 112: Negative or not required by law. Electronically signed by: Vikas Hayes M.D. 11/24/2022 8:23 PM
--- NOTE | 2022-11-24 21:33 | Communication Note ---
Date of Service: November 24, 2022 Took several hours to get the patient her US. finally read and notes ULTRASOUND RIGHT LOWER EXTREMITY VENOUS CLINICAL HISTORY: Palpable thrombosed varicose vein. Right leg pain. COMPARISON STUDY: No priors. TECHNIQUE: Real-time, grayscale, and color Doppler sonography of the deep veins of the right lower extremity was performed from the inguinal crease to the calf. Compression and augmentation were utilized. FINDINGS: There is no sonographic evidence of deep venous thrombosis identified in the right lower extremity. The common femoral, superficial femoral, and popliteal veins are patent and normally compressible. The greater saphenous vein and the profunda femoris vein at the junction with the common femoral vein are clear. The visualized calf veins are patent. There is occlusive thrombus seen within varicose veins in the posterolateral thigh at the site of interest. This extends approximately 5 cm in length. IMPRESSION: 1. There is no sonographic evidence of deep venous thrombosis identified in the right lower extremity. 2. Occlusive superficial venous thrombus within varicose veins in the posterolateral thigh at the site of interest. Spoke with Amy Koroma DO regarding this patient. She has no other risk factors for VTE other than being PP. She will be going home and will be ambulatory. She does not think that prophylactic anticoagulation needed in this case. Will discuss signs and symptoms to be concerned about with the patient. Should make appt to f/u with her PCP by the end of the week.
--- NOTE | 2022-11-24 22:23 | Communication Note ---
Date of Service: November 24, 2022 After explaining the situation to the patient and fob, she expresses understanding. She however, lives over an hour away and does not wish to be d/c this late in the evening. Will rescind d/c and plan d/c in the am.
[2022-11-25] MEDS: oxyCODONE HCL IR 5 MG TAB (IMMEDIATE RELEASE) PO PRN ×2 (03:43→07:42)
[2022-11-25] MEDS: PRENATAL VITAMIN 1 TAB PO SCH (07:41)
[2022-11-25] MEDS: FERROUS SULFATE 325 MG TAB PO SCH (07:41)
[2022-11-25] MEDS: DOCUSATE SODIUM 100 MG CAP PO SCH (07:42)
== END 2022-11-25 13:30 | disposition home or self-care (01) | DRG 806 ==
LOC: OPB 10:49 → 4S1 10:50 → 4E2 22:21